=== PATIENT | female | born 1985 | race Caucasian/White ===

== ENCOUNTER 2019-06-03 09:39 | Emergency (ER) | payer OTHER ==
[~2019-06-03] VITALS: Ht 167.6 cm; Wt 81.6 kg
[2019-06-03 11:39] VITALS: Ht 167.6 cm; Wt 81.6 kg
[2019-06-03 11:41] LABS: BASOPHIL % 0.6 % (0-2); PLATELET COUNT 308 x10^3mcL (130-400); RED CELL DISTRIBUTION WIDTH 14.4 % (11.5-14.5)
[2019-06-03 12:24] LABS: CALCIUM 9.2 mg/dL (8.5-10.1); CARBON DIOXIDE 25.9 mmol/L (21-32); CHLORIDE SERUM 98 mmol/L (98-107); CREATININE SERUM 0.6 mg/dL (0.6-1.0); GFR1 > 60 mL/min; GLUCOSE SERUM 84 mg/dL (74-106); POTASSIUM SERUM 4.1 mmol/L (3.5-5.1); SODIUM SERUM 136 mmol/L (136-145)
[2019-06-03 12:29] LABS: ALBUMIN 4.2 g/dL (3.4-5.0); ALKALINE PHOSPHATASE 58 U/L (46-116); ALT/SGPT 29 U/L (14-59); AMYLASE 51 U/L (25-115); AST/SGOT 22 U/L (15-37); BILIRUBIN TOTAL 0.7 mg/dL (0.20-1.00); LIPASE 38 IU/L (73-393); TOTAL PROTEIN, SERUM 7.8 g/dL (6.4-8.2)
[2019-06-03 12:52] VITALS: BP 123/80
== END 2019-06-03 13:02 | disposition home or self-care (01) ==
LOC: ED 09:39
PROVIDERS: Emergency Medicine
DX: F41.9 Anxiety disorder, unspecified (principal); R10.13 Epigastric pain; Z88.1 Allergy status to other antibiotic agents
CPT/HCPCS: 36415; J1885; J2060; Q0162